=== PATIENT | male | born 1945 | race Caucasian/White ===

== ENCOUNTER 2024-03-21 21:24 | Inpatient (IN) | payer MEDICARE, BC ==
[~2024-03-21] VITALS: Ht 180.3 cm; Wt 105.0 kg
[~2024-03-21 21:24] MED LIST: ASPIRIN E.C. 8181 MG PO; CEPHALEXIN500 M1 PO; HCTZ12.5TAB PO; HYZAAR 25 MG-101 TAB PO; NORVASC 5MG5 MG/TAB PO; TOPROL XL100 MG PO
[2024-03-21 21:57] LABS: BASO % 0.2 % (0.0-2.0); EOS % 0.7 % (0.0-4.0); GRAN # 3.3 K/mm3 (1.4-6.5); GRAN % 80.2 % (42.2-75.2); HEMATOCRIT 37.3 % (42.0-52.0); HEMOGLOBIN 12.6 g/dl (13.5-18.0); LYMPH # 0.5 K/mm3 (1.2-3.4); LYMPH % 13.3 % (20.0-51.0); MEAN CELL VOLUME 91 fl (80.0-100.0); MEAN CORPUSCULAR HEMOGLOBIN 31 pg (27-31); MEAN CORPUSCULAR HGB CONC 34 g/dl (33.0-37.0); MEAN PLATELET VOLUME 9.8 fl (7.4-10.4); MONO # 0.2 K/mm3 (0.1-0.6); MONO % 4.4 % (1.7-9.3); PLATELET COUNT 148 K/mm3 (130-400); RED BLOOD COUNT 4.12 M/mm3 (4.20-5.60); REDCELL DISTRIBUTION WIDTH-CV 14.5 % (11.5-14.5)
[2024-03-21 22:18] LABS: URINE APPEARANCE CLEAR (CLEAR/HAZY); URINE BLOOD NEGATIVE (NEGATIVE); URINE COLOR Dark Yellow (YELLOW); URINE GLUCOSE NEGATIVE (NEGATIVE); URINE KETONE TRACE (NEGATIVE); URINE NITRATE NEGATIVE (NEGATIVE); URINE PROTEIN(semi-quant) 1+ (NEGATIVE)
[2024-03-21 22:20] LABS: ALBUMIN 3.1 g/dL (3.4-4.8); BILIRUBIN,TOTAL 2.4 mg/dL (0.2-1.2); C-REACTIVE PROTEIN 5.21 mg/dL (0.00-0.50); CALCIUM 8.2 mg/dL (8.4-10.2); CREATININE, serum 0.98 mg/dL (0.72-1.25); POTASSIUM 3.2 mEq/L (3.5-4.5); TOTAL PROTEIN 6.2 g/dl (6.2-8.1); TROPONIN-I 0.013 ng/mL (0.00-0.033)
[2024-03-21 22:43] LABS: COLLECTION METHOD CLEAN CATCH
[2024-03-21] MEDS ORDERED: Iohexol 300 - 100 ML VIAL IV ONE (23:10)
[2024-03-21] MEDS ORDERED: NS IV ONE (23:13)
[2024-03-22] VITALS (323 sets, daily range): BP systolic 118–135; BP diastolic 69–80; PULSE 64–80; TEMP 97.9–98.6; O2SAT 83–98
[2024-03-22] MEDS ORDERED: Heparin 5,000 UNITS/ML 1 ML VIAL IV PRN ×2 (00:30→01:30)
[2024-03-22] MEDS ORDERED: Heparin/D5W 250 ML IV SCH ×2 (00:30→01:30)
[2024-03-22] MEDS ORDERED: Heparin 5,000 UNITS/ML 1 ML VIAL IV ONE (00:30)
[2024-03-22 01:03] LABS: INR 1.4 (0.8-3.0)
[2024-03-22 01:05] LABS: PARTIAL THROMBOPLASTIN TIME 28.3 SECONDS (26.0-37.0)
[2024-03-22] MEDS ORDERED: Ondansetron 4 MG/2 ML VIAL IV PRN (01:15)
[2024-03-22] MEDS ORDERED: Acetaminophen 325 MG TAB PO PRN (01:15)
--- NOTE | 2024-03-22 02:00 | NUR ---
PT ARRIVED VIA A STRETCHER FROM THE ED. HE WAS ABLE TO STAND AND PIVOT FROM THE STRETCHER TO THE BED. PT WAS ON 3L NC. HE IS ON A HEPARIN DRIP. HIS IS AT THE BEDSIDE. HE IS ALERT AND ORIENTED. PT USES THE URINIAL WITH NO ISSUES.
[2024-03-22] MEDS ORDERED: FLAGYL500 MG PO (03:29)
[2024-03-22] MEDS ORDERED: LEVAQUIN 5500 MG/TA1 PO (03:30)
[2024-03-22] MEDS ORDERED: TOPROL XL 25MG25 MG PO (03:33)
[2024-03-22] MEDS ORDERED: ATIVAN 1MG T1 MG/TAB PO (03:36)
[2024-03-22] MEDS ORDERED: LOMOTIL 0.025 M1 TAB PO (03:41)
[2024-03-22 04:52] LABS: PARTIAL THROMBOPLASTIN TIME 33.7 SECONDS (26.0-37.0)
--- NOTE | 2024-03-22 06:18 | NUR ---
RECEIVED A PHONE CALL FOR A CRITICAL VALUE-HEP XA 1.07. PER THE PROTOCOL THE DRIP WAS STOPPED AT 0207 AND AN ORDER WAS PLACED FOR A REDRAW AT 0407. THE REDRAW HEP XA VALUE WAS 0.09. THESE VALUES DID NOT MAKE SENSE. SPOKE TO THE HOUSE SUP AND WE DISCOVERED THE HEPARIN DRIP WAS INITIALLY STARTED AT 0059 WITH A 4000 UNIT BOLUS. THERE SHOULD NOT HAVE BEEN A HEP XA DRAW SO SOON AFTER THE INITIATION. SPOKE TO DR. MORELOS AND HE STATED TO RESTART THE DRIP AT THE INITIAL RATE PER THE ORDER.
--- NOTE | 2024-03-22 08:15 | NUR ---
STOPPED THE HEPARIN DRIP AT 0207 AND RESTARTED THE DRIP AT 0530. WAS UNABLE TO CHART THE DRIP WAS STOPPED THE SYSTEM DOES NOT ALLOW ME TO GO BACK AND CHART.
--- NOTE | 2024-03-22 08:24 | NUR ---
RECEIVED A CRITICAL FROM THE LAB. HEP XA OF 1.07. CHANGED PER THE PROTOCOL.
--- NOTE | 2024-03-22 09:14 | NUR ---
PATIENT ALERT RESTING IN BED, A&OX4, DENIES PAIN AT THIS TIME, BUT DOES DESCRIBE A FEELING OF FULLNESS IN HIS UPPER ABDOMINAL AREA. PATIENT HAS HEPARIN RUNNING AT 18.5ML/HR TO HIS L WRIST. PATIENT PLEASANT AND COOPERATIVE DURING ASSESSMENT.
[2024-03-22] MEDS ORDERED: TRESIBA FL100 UNIT/1 SQ (10:26)
[2024-03-22] MEDS ORDERED: NOVOLOG FLEX100 U/ML SQ (10:30)
--- NOTE | 2024-03-22 10:49 | NUR ---
Shovel Logger met with patient to discuss discharge planning. Patient lives with his , Jeni (ph#[phone]) who is at bedside. Patient lives in [place], [place] and sees Dr. Lara for primary care. Patient gets his medications from [facility] in [place] with no difficulites. Patient does not normally use any DME, but is currently on oxygen. Patient is normally independent with ADLS and plans to return home at time of discharge. Patient is currently seeing Dr. Winn, Oncologist and getting chemotherapy every two weeks. Patient does still drive but sometimes has his drive him to appointments. Patient stated his , Jeni is DPOA-HC and they will work on getting a copy to the hospital. Discharge Plan: Home, pending PT/OT jakob
[2024-03-22] MEDS ORDERED: levoFLOXacin 500 MG TAB PO SCH (10:54)
[2024-03-22] MEDS ORDERED: NS 1,000 ML IV SCH (11:00)
[2024-03-22] MEDS ORDERED: metroNIDAZOLE 250 MG TAB PO SCH (11:30)
[2024-03-22] MEDS ORDERED: LORazepam 1 MG TAB PO SCH (22:30)
[2024-03-22] MEDS ORDERED: Dextrose 50% Water 25 GM/50 ML SYRINGE IV PRN (22:30)
[2024-03-22] MEDS ORDERED: Glucagon 1 MG VIAL IM PRN (22:30)
[2024-03-22] MEDS ORDERED: Dextrose (Glucose) 15 GM (4 x 3.75 GM) Chewable TABLET PACK PO PRN (22:30)
[2024-03-23] VITALS (78 sets, daily range): BP systolic 124–134; BP diastolic 72–77; PULSE 74–88; TEMP 97.8–98.4; O2SAT 89–99
[2024-03-23 05:55] LABS: BASO % 0.3 % (0.0-2.0); EOS % 0.8 % (0.0-4.0); GRAN # 3.1 K/mm3 (1.4-6.5); GRAN % 82.3 % (42.2-75.2); LYMPH # 0.4 K/mm3 (1.2-3.4); LYMPH % 10.5 % (20.0-51.0); MEAN CELL VOLUME 90 fl (80.0-100.0); MEAN CORPUSCULAR HGB CONC 34 g/dl (33.0-37.0); MEAN PLATELET VOLUME 10.1 fl (7.4-10.4); MONO # 0.2 K/mm3 (0.1-0.6); MONO % 4.8 % (1.7-9.3); PLATELET COUNT 137 K/mm3 (130-400); RED BLOOD COUNT 3.35 M/mm3 (4.20-5.60); REDCELL DISTRIBUTION WIDTH-CV 14.4 % (11.5-14.5)
[2024-03-23 06:06] LABS: HEMATOCRIT 30.1 % (42.0-52.0); MEAN CORPUSCULAR HEMOGLOBIN 30 pg (27-31)
[2024-03-23 06:07] LABS: HEMOGLOBIN 10.2 g/dl (13.5-18.0)
[2024-03-23 06:13] LABS: ALBUMIN 2.3 g/dL (3.4-4.8); BILIRUBIN,TOTAL 1.6 mg/dL (0.2-1.2); CALCIUM 7.5 mg/dL (8.4-10.2); CREATININE, serum 0.82 mg/dL (0.72-1.25); POTASSIUM 3.6 mEq/L (3.5-4.5); TOTAL PROTEIN 4.6 g/dl (6.2-8.1)
[2024-03-23] MEDS ORDERED: Insulin Lispro (HumaLOG) SQ SCH (08:00)
--- NOTE | 2024-03-23 09:01 | NUR ---
Blowing Engineer spoke with RN who advised patient likely to move up to Medical today. PT evaluated patient and recommend home.
--- NOTE | 2024-03-23 11:51 | NUR ---
REPORT GIVEN TO EMILY ON MEDICAL FLOOR AND PT TRANSFERRED TO ROOM 357 @ 1122
--- NOTE | 2024-03-23 12:00 | NUR ---
Patient arrived to medical unit, roon 357. Alert and oriented x 4, denies any pain or discomfort. Telemetry in place, SR. Getting HEP GTT at 1500 units per hr, and NS 83MLS/HR. 3l O2 NC.
--- NOTE | 2024-03-23 16:15 | NUR ---
Patient getting IV therapy in his left wrist. Portacath not accessed.
--- NOTE | 2024-03-23 20:21 | NUR ---
Patient assessed around 2009. Alert and oriented, and able to make needs known. Denies having pain and discomfort. Peripheral IV to left hand with IV fluids and Heparin drip running per orders. On oxygen at 3 L/min via NC. Denies SOB and dypsnea. LS CTA except diminished in right lower lobe. HRR. Telemetry in place. BSAx4. No edema. Voices no questions, needs, or concerns at this time. In bed with call light within reach.
--- NOTE | 2024-03-23 20:57 | NUR ---
Patient and were requesting life educator to see them tomorrow. Spoke with [facility] and order placed.
[2024-03-24] VITALS (12 sets, daily range): BP systolic 127–155; BP diastolic 75–84; PULSE 82–91; TEMP 97.5–98.2
[2024-03-24 04:09] LABS: BASO % 0.3 % (0.0-2.0); EOS % 0.6 % (0.0-4.0); GRAN # 2.9 K/mm3 (1.4-6.5); GRAN % 80.7 % (42.2-75.2); HEMOGLOBIN 10.2 g/dl (13.5-18.0); LYMPH # 0.4 K/mm3 (1.2-3.4); LYMPH % 10.8 % (20.0-51.0); MEAN CELL VOLUME 90 fl (80.0-100.0); MEAN CORPUSCULAR HEMOGLOBIN 30 pg (27-31); MEAN CORPUSCULAR HGB CONC 34 g/dl (33.0-37.0); MEAN PLATELET VOLUME 10.4 fl (7.4-10.4); MONO # 0.2 K/mm3 (0.1-0.6); MONO % 6.5 % (1.7-9.3); PLATELET COUNT 146 K/mm3 (130-400); RED BLOOD COUNT 3.35 M/mm3 (4.20-5.60); REDCELL DISTRIBUTION WIDTH-CV 14.6 % (11.5-14.5)
[2024-03-24 04:10] LABS: HEMATOCRIT 30.1 % (42.0-52.0)
[2024-03-24 04:37] LABS: ALBUMIN 2.3 g/dL (3.4-4.8); BILIRUBIN,TOTAL 1.3 mg/dL (0.2-1.2); CALCIUM 7.5 mg/dL (8.4-10.2); CREATININE, serum 0.81 mg/dL (0.72-1.25); POTASSIUM 3.6 mEq/L (3.5-4.5); TOTAL PROTEIN 4.7 g/dl (6.2-8.1)
--- NOTE | 2024-03-24 05:41 | NUR ---
59 yo female with a history of stage IV breast cancer is now admitted for further care and management of sepsis of unclear etiology. ht 162.6 cm wt 48 kg SCr 1.03 with estimated CrCl ~40 ml/min half life 12.6 hours Plan: Patient received an initial loading dose of vancomycin 1000 mg x1 in the ED (20.8 mg/kg); will follow with a maintenance regimen of vancomycin 750 mg iv q12h to target a goal trough of 15-20 mcg/ml. Will follow patient's renal function, micro data, and vancomycin levels as indicated to assess for any necessary changes to regimen. Thank you for this dosing consult.
--- NOTE | 2024-03-24 05:48 | NUR ---
Patient continues on oxygen at 3 L/min via NC. Continues on Heparin drip per orders. Decreased rate per protocol around 0420. Recheck HepXa ordered for 1020. Voices no questions, needs, or concerns at this time. In bed with call light within reach.
--- NOTE | 2024-03-24 08:00 | NUR ---
PT AWAKE AND RESTING IN BED UPON ENTERING ROOM. 3L O2 VIA NC. DENIES PAIN. HOME MED OF LORAZEPAM FOUND ON BEDSIDE TABLE. WILL INFORM DOCTOR. NO FURTHER CONCERNS. CALL LIGHT WITHIN REACH.
--- NOTE | 2024-03-24 13:51 | NUR ---
PATIENT REQUIRED 2LPM OXYGEN WHILE WALKING >88%.
--- NOTE | 2024-03-24 15:04 | NUR ---
D: Ornamental Metal Fabricator Apprentice stopped by room on rounds. A: Pt was resting and content with by his side. 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 Pt and appreciated the visit. P: Ornamental Metal Fabricator Apprentice informed pt that if he needed anything from the interior decorator paperhanging to let his nurse know. Ornamental Metal Fabricator Apprentice will follow up as needed.
--- NOTE | 2024-03-24 15:19 | NUR ---
dry yard worker attended interdisciplinary clinical rounding with Dr. Reveles. Patient may be medically ready for discharge tomorrow. Dr. Reveles reports patient may need oxygen set up tomorrow depending how he does with his exercise oximetry. SW will follow up.
--- NOTE | 2024-03-24 15:59 | NUR ---
DUKE FROM [facility] CALLED AND NOTIFIED THIS NURSE THAT PT HAS ROUTINE LAB DRAWS TOMORROW 03/25 AND UNABLE TO MAKE IT DUE TO HOSPITAL STAY AND ASKED THIS NURSE IF LABS CAN BE DRAWN WITH MORNING LABS HERE. LABS NEEDED ARE CA 19-9, CBC, CMP MAGNESIUM, MANUAL DIFFERENTIAL. DR LOCK CALLED AND NOTIFIED, THIS NURSE GIVEN A VERBAL ORDER TO ADD LABS ON FOR 03/25 MORNING
--- NOTE | 2024-03-24 16:26 | NUR ---
2ND GOAL HEPXA IN A ROW. RECHECK ORDERED FOR 03/25/24 MORNING WITH ROUTINE LABS.
--- NOTE | 2024-03-24 16:30 | NUR ---
THIS NURSE CALLED HOSPITALISTAYDIN, AND NOTIFIED HIM THAT PT HAD PERSONAL ATIVAN AT BEDSIDE AND TOOK AN ADDITIONAL 1MG DOSE AFTER SCHEDULED 1MG DOSE WAS GIVEN AROUND 199903/23/24. HOSPITALIST TOLD THIS NURSE THAT ATIVAN CAN BE TAKEN OR SCHEDULED ATIVAN WOULD BE DISCONTINUED OR HE CAN SCHEDULE TRAZADONE. PT NOTIFIED OF THIS AND PTS TAKING PERSONAL ATIVAN HOME. PT ASKING TO TAKE ATIVAN CLOSER TO MIDNIGHT LIKE AT HOME. THIS NURSE VERBALIZED UNDERSTANDING
--- NOTE | 2024-03-24 19:37 | NUR ---
THIS NURSE AGREES WITH MEENA ASENCIO ASSESSMENT
--- NOTE | 2024-03-24 19:41 | NUR ---
NIGHT RN NOTIFIED OF PERSONAL ATIVAN AND PTS REQUEST TO TAKE CLOSER TO MIDNIGHT WITH MINIMAL INTERRUPTIONS.
[2024-03-24] MEDS ORDERED: Apixaban 5 MG TABLET PO SCH (21:00)
--- NOTE | 2024-03-24 22:00 | NUR ---
Patient resting in bed. Denies any pain at this time. Needs met. Assessment complete. IV in left hand infusing without complications. Call light and personal items in reach. Bed in low position and bed alarm on.
[2024-03-25 00:28] VITALS: BP 135/78; PULSE 82; TEMP 97.5
[2024-03-25 00:50] VITALS: BP_SYST 135
[2024-03-25 04:06] VITALS: BP 147/90; PULSE 99; TEMP 97.7
[2024-03-25 04:45] VITALS: BP_SYST 147
[2024-03-25 07:04] VITALS: BP 135/80; PULSE 80; TEMP 97.7
--- NOTE | 2024-03-25 08:29 | NUR ---
Bedside report received from CLARKE Castanon. Pt awake in bed watching TV with no complaints. Call light within reach.
--- NOTE | 2024-03-25 08:30 | NUR ---
Pt awake in bed visiting with family at bedside. Shift assessment completed. Pt is A&Ox4. VSS. INT to Lt wrist patent with no swelling, redness, or drainage. BLE +2 edema noted in assessment. Pt denies pain rating 0/10. Pt has no complaints at this time. Call light within reach.
--- NOTE | 2024-03-25 08:32 | NUR ---
SW met with patient and to review Medicare IM form. Patient agreeable to discharge to home today and signed form. Original on chart, copy to patient.
[2024-03-25 08:33] VITALS: BP_SYST 135
[2024-03-25 08:44] LABS: BASO % 0.3 % (0.0-2.0); EOS % 0.6 % (0.0-4.0); GRAN # 2.8 K/mm3 (1.4-6.5); GRAN % 80.8 % (42.2-75.2); LYMPH # 0.3 K/mm3 (1.2-3.4); LYMPH % 9.6 % (20.0-51.0); MEAN CELL VOLUME 93 fl (80.0-100.0); MEAN CORPUSCULAR HEMOGLOBIN 31 pg (27-31); MEAN CORPUSCULAR HGB CONC 34 g/dl (33.0-37.0); MEAN PLATELET VOLUME 10.8 fl (7.4-10.4); MONO # 0.3 K/mm3 (0.1-0.6); MONO % 7.8 % (1.7-9.3); PLATELET COUNT 159 K/mm3 (130-400); REDCELL DISTRIBUTION WIDTH-CV 15.2 % (11.5-14.5)
[2024-03-25 08:50] LABS: HEMATOCRIT 29.7 % (42.0-52.0)
[2024-03-25 09:00] LABS: POTASSIUM 3.2 mEq/L (3.5-4.5)
[2024-03-25] MEDS ORDERED: ELIQUIS 5MG PO (09:13)
[2024-03-25 09:15] LABS: ALBUMIN 2.3 g/dL (3.4-4.8); BILIRUBIN,TOTAL 1.3 mg/dL (0.2-1.2); CALCIUM 7.6 mg/dL (8.4-10.2); CREATININE, serum 0.79 mg/dL (0.72-1.25); TOTAL PROTEIN 4.7 g/dl (6.2-8.1)
--- NOTE | 2024-03-25 10:13 | NUR ---
03/25/24: [id number] EDUCATION CONSULT. 79 YO MALE ADMITTED FOR BILATERAL PE. PATIENT WITH EXISTING PANCREATIC CX. DIAGNOSIS ON CHEMOTHERAPY. PATIENT AND REQUESTED TO SPEAK WITH SHIP UNLOADER DURING HOSPITAL STAY. PER PATIENT'S DEXCOM; TIME IN RANGE X LAST 14 DAYS: 93%, 15% HIGH, 2% LOW; GREAT CONTROL. PATIENT REPORTS POOR APPETITE AT TIMES DUE TO CHEMOTHERAPY AND REPORTS HYPOGLYCEMIC EVENTS ESPECIALLY IN THE NIGHT RECENTLY. HOME REPORTED INSULIN REGIMEN: 20 UNITS TRESIBA QHS, 10 UNITS NOVOLOG BID W/BREAKFAST AND SUPPER MEALS. I FEEL THIS REGIMEN IS LIKELY TOO HIGH FOR THIS PATIENT BASED ON HIS REPORTED HYPOGLYCEMIA AND POOR INTAKE/APPETITE. AGREE WITH DR. LOCK DISCHARGE RECOMMENDATIONS OF DECREASE TRESIBA TO 10 UNITS QHS AND NOVOLOG TO 6 UNITS BID W/BREAKFAST AND SUPPER. MAY CONSIDER SLIDING SCALE FOR NOVOLOG IN THE FUTURE; RECOMMEND PATIENT FOLLOW UP WITH PCP FOR FUTURE INSULIN ADJUSTMENTS. APPRECIATE THE CONSULT. KML,MS,RD,CSSD,LD
--- NOTE | 2024-03-25 10:56 | NUR ---
Discharge paperwork provided to pt and pt spouse. Pt verbalized understanding of discharge instructions. INT to Lt wrist discontinued with tip intact, pt tolerated well with no complaints. Telemetry discontinued. is picking up home oxygen and bringing to facility for pt to wear at discharge. Pt is leaving facility with back to home.
--- NOTE | 2024-03-25 13:12 | NUR ---
mold loft worker attended interdisciplinary clinical rounding with Dr. Reveles. Patient is requiring 2 liters of oxygen with exercise. SW secure emailed referral to [facility]. SW was notified the oxygen would not be able to be delivered until this afternoon. SW notified patient's and patient of the option to pickle processor the oxygen at [facility] and bring to the hospital for discharge. Patient's is in agreement that she can go pickle processor the oxygen supplies and pick patient up at hospital for discharge. SW notified patient's nurse the is going to pickle processor. SW notified [facility]. Discharge plan: Home with Oxygen through [facility]
[2024-03-31] MEDS ORDERED: Apixaban 5 MG TABLET PO SCH (21:00)
== END 2024-03-25 11:15 | disposition home or self-care (01) | DRG 175 ==
LOC: COL.ER 21:24 → ICU 03-22 00:49 → MEDICAL 03-23 12:45
PROVIDERS: Emergency Medicine; Physician Assistant; ADMIT Internal Medicine
DX: I26.99 Other pulmonary embolism without acute cor pulmonale (principal); J96.01 Acute respiratory failure with hypoxia; C25.9 Malignant neoplasm of pancreas, unspecified; R18.8 Other ascites; J90 Pleural effusion, not elsewhere classified; C78.7 Secondary malignant neoplasm of liver and intrahepatic bile duct; J98.11 Atelectasis; I82.433 Acute embolism and thrombosis of popliteal vein, bilateral; I10 Essential (primary) hypertension; I45.10 Unspecified right bundle-branch block; K64.9 Unspecified hemorrhoids; E11.9 Type 2 diabetes mellitus without complications; I08.1 Rheumatic disorders of both mitral and tricuspid valves; Z20.822 Contact with and (suspected) exposure to COVID-19; R74.01 Elevation of levels of liver transaminase levels; Z79.4 Long term (current) use of insulin; Z88.6 Allergy status to analgesic agent; Z88.1 Allergy status to other antibiotic agents; Z90.49 Acquired absence of other specified parts of digestive tract; Z95.0 Presence of cardiac pacemaker
CPT/HCPCS: J1644; J1815; J7030; Q9967